=== PATIENT | female | born 1960 | race Caucasian/White ===

== ENCOUNTER 2017-01-31 09:53 | Emergency (ER) | payer OTHER ==
--- NOTE | ~2017-01-31 | ER ---
PATIENT'S NAME: ORLANDO ALBRECHT [facility] AGE: 56 Y [address] ROOM: [place] [id number] LOCATION: [facility] ADMIT DATE: 01/31/2017 ER/Outpatient Report DISCHARGE DATE: 01/31/2017 FAMILY PHYSICIAN: Francisco Loredo MD ATTENDING PHYSICIAN: Betito Harry CHIEF COMPLAINT: Migraine. HISTORY OF PRESENT ILLNESS: The patient states that she is having recurrent migraine. This feels exactly the same as her usual migraines, but is very intense. It was also present when she woke up, which is unusual, but the location and other symptoms are the same. She has her typical aura and light sensitivity. She also has some nausea associated with this. She denies any significant vision changes, fevers, chills, or other infectious signs or symptoms. This was not a thunderclap headache. She states that it was there when she woke up at her normal time and it did not wake her up from sleep. PAST MEDICAL HISTORY: Documented on the record and reviewed by me. SOCIAL HISTORY: Documented on the record and reviewed by me. MEDICATIONS: Documented on the record and reviewed by me. ALLERGIES: DOCUMENTED ON THE RECORD AND REVIEWED BY ME. REVIEW OF SYSTEMS: All systems reviewed and negative except as noted in the HPI. PHYSICAL EXAMINATION: VITAL SIGNS: Blood pressure 114/60, pulse 91, respiratory rate 16, temperature 96.3, and SpO2 is 97% on room air. GENERAL: Age-appropriate female, upright on the exam chair, obviously does not feel well. No obvious pain or distress. NEUROLOGIC: Awake and alert. GCS 15. No focal deficits. No asymmetry. No meningismus. HEENT: Normocephalic, atraumatic. Eyes are PERRL. Oropharynx is clear. NECK: Supple. Trachea is midline. CHEST/HEART: Regular rate and rhythm. No murmurs. LUNGS: Clear to auscultation bilateral. No rhonchi, wheezes, or rales. PATIENT'S NAME: ORLANDO ALBRECHT [facility] AGE: 56 Y [address] ROOM: [place] [id number] LOCATION: [facility] ADMIT DATE: 01/31/2017 ER/Outpatient Report DISCHARGE DATE: 01/31/2017 FAMILY PHYSICIAN: Francisco Loredo MD ATTENDING PHYSICIAN: Betito Harry ABDOMEN: Soft, nontender, and nondistended. No rebound or guarding. EXTREMITIES: Warm and well perfused. BACK: Normal on inspection and palpation. SKIN: Clean, dry, and intact. LABS AND X-RAYS: None. IMPRESSION: Migraine. EMERGENCY DEPARTMENT COURSE: The patient was seen and evaluated. She was given Compazine, Benadryl, and Toradol IM. She declined staying any longer. I am recommending cognitive rest for today and return as needed. Presentation not consistent with meningitis, venous sinus thrombosis, or subarachnoid hemorrhage. MD CARLOS MAXWELL/tyrell /[id number] d: 01/31/172014 t: 02/01/17 0813, OUTPATIENT REPORT
== END 2017-01-31 10:33 | disposition disaster alternative care site (69) ==
LOC: GMED 09:53
DX: G43.909 Migraine, unspecified, not intractable, without status migrainosus (principal); F17.210 Nicotine dependence, cigarettes, uncomplicated; Z86.19 Personal history of other infectious and parasitic diseases
CPT/HCPCS: J1200; J1885; J2765

== ENCOUNTER 2017-03-20 14:25 | Emergency (ER) | payer OTHER ==
--- NOTE | ~2017-03-20 | ER ---
PATIENT'S NAME: JANETTE BRINK [facility] AGE: 56 Y [address] ROOM: [place] [address] LOCATION: [facility] ADMIT DATE: 03/20/2017 ER/Outpatient Report DISCHARGE DATE: 03/20/2017 FAMILY PHYSICIAN: Francisco Loredo MD ATTENDING PHYSICIAN: Patricia Greer Time of Arrival: 1431 hours. Time of Evaluation: 1431 hours. CHIEF COMPLAINT: Migraine. HISTORY OF PRESENT ILLNESS: The patient is a 56-year-old female, who presents to the emergency department today with chief complaint of migraine. She reports she does have a long history of migraines but this 1 is worse. She reports this started just 30 minutes prior to arrival. She does report pressure behind her eyes. It is currently 9/10 in severity. Does have blurred vision, photophobia, dizziness, subjective fevers, some nausea. No vomiting. No mental status changes. PAST MEDICAL HISTORY: Migraines. PAST SURGICAL HISTORY: Knee, hand, shoulder, trigger finger, hysterectomy. SOCIAL HISTORY: The patient smokes half a pack a day for 40 years. Denies any alcohol or illicit drug use. ALLERGIES: TO CODEINE. MEDICATIONS: None. PRIMARY CARE DOCTOR: Francisco Loredo MD REVIEW OF SYSTEMS: All systems are reviewed by myself and are negative with the exception of those discussed in HPI and past medical history. PHYSICAL EXAMINATION: PATIENT'S NAME: JANETTE BRINK [facility] AGE: 56 Y [address] ROOM: [place] [address] LOCATION: [facility] ADMIT DATE: 03/20/2017 ER/Outpatient Report DISCHARGE DATE: 03/20/2017 FAMILY PHYSICIAN: Francisco Loredo MD ATTENDING PHYSICIAN: Patricia Greer VITAL SIGNS: Weight 65.4 kg, blood pressure 124/76, pulse 99, respiratory rate 20, temperature 97.4, oxygen saturation 96% on room air. GENERAL: The patient is a 56-year-old female, who appears her stated age, in no acute distress. HEENT: Normocephalic, atraumatic. Pupils are equal, round, and reactive to light. NECK: Supple. There is no nuchal rigidity. CARDIOVASCULAR: Regular rate and rhythm. LUNGS: Clear to auscultation bilaterally. ABDOMEN: Soft, nontender, and nondistended. No rebound, rigidity, or guarding. MUSCULOSKELETAL: The patient moves all 4 extremities. NEUROLOGICAL: GCS 15. Alert and oriented x4. Cranial nerves 2 through 12 are intact. Normal [id number]. Normal rapid hand movement. Equal resource recovery specialist strength bilaterally. Downward going toes. No clonus. 2/4 reflexes. SKIN: Warm and dry. There are no rashes or lesions noted. LABORATORY DATA AND X-RAYS: CT scan of the brain is obtained. I have discussed the results with the radiologist. It shows no acute process. IMPRESSION: 1. Acute cephalgia, suspect migraine. 2. Initial visit. EMERGENCY DEPARTMENT COURSE: The patient was brought back to the examination room. Seen and evaluated by myself. IV was established. The patient was given a liter of normal saline as well as 30 mg of Toradol IV as well as Compazine 10 mg IV as well as Benadryl 50 mg IV. I have reassessed the patient. The patient is much improved. I have discussed I would recommend following up with the patient's primary care, Dr. Francisco Loredo, in 2-3 days for re-evaluation. I have discussed return to care instructions including worsening symptoms or any other concerns to return to the emergency department as soon as possible. I have written a prescription for Compazine for home. The patient is agreeable without further questions. DISPOSITION: The patient discharged home in good condition. PATRICIA GREER DO PATIENT'S NAME: ORLANDO ALBRECHT [facility] AGE: 56 Y [address] ROOM: [place] [address] LOCATION: [facility] ADMIT DATE: 03/20/2017 ER/Outpatient Report DISCHARGE DATE: 03/20/2017 FAMILY PHYSICIAN: Francisco Loredo MD ATTENDING PHYSICIAN: Patricia Greer/tyrell /[id number] d: 03/20/172144 t: 03/24/172032, OUTPATIENT REPORT
== END 2017-03-20 17:03 | disposition disaster alternative care site (69) ==
LOC: GMED 14:25
DX: R51 Headache (principal); F17.210 Nicotine dependence, cigarettes, uncomplicated; Z98.890 Other specified postprocedural states; Z90.710 Acquired absence of both cervix and uterus; Z88.5 Allergy status to narcotic agent; Z79.899 Other long term (current) drug therapy
CPT/HCPCS: J0780; J1200; J1885; J7030